=== PATIENT | female | born 2000 | race Caucasian/White ===

== ENCOUNTER → 2021-07-11 04:53 | Observation (INO) | END | disposition home or self-care (01) | LOC: 1NENULAB | PROVIDERS: ADMIT Obstetrics & Gynecology; ATTEND Obstetrics & Gynecology ==

== ENCOUNTER 2021-07-11 10:11 | Inpatient (IN) ==
[2021-07-11] MEDS ORDERED: Azithromycin 500 MG in 0.9 % Sodium Chloride 250 ML IVPB PRN (11:12)
[2021-07-11] MEDS ORDERED: Ondansetron 4 MG/2 ML VIAL IVP PRN (11:12)
[2021-07-11] MEDS ORDERED: Naloxone 0.4 MG/ML INJ IVP PRN (11:12)
[2021-07-11] MEDS ORDERED: Famotidine 20 MG/2 ML VIAL IVP PRN (11:12)
[2021-07-11] MEDS ORDERED: Metoclopramide 10 MG/2 ML VIAL IVP PRN (11:12)
[2021-07-11] MEDS ORDERED: Ringers Solution, Lactated 1,000 ML IVC SCH (11:15)
[2021-07-11] MEDS ORDERED: Penicillin G Potassium 5,000,000 UNIT in 0.9 % Sodium Chloride Mini Bag 100 ML IVPB ONE (11:58)
[2021-07-11 12:03] LABS: Basophils % 0.1 %; Eosinophils # 0.1 K/mcL (0.0-0.6); Eosinophils % 0.7 %; Hematocrit 37.1 % (35.3-44.9); Hemoglobin 12.5 g/dL (11.5-15.4); Immature Granulocytes % 0.4 % (0-4); Lymphocytes # 2.5 K/mcL (0.6-4.6); Lymphocytes % 17.2 %; Mean Corpuscular HGB Conc 33.7 g/dL (31.6-35.5); Mean Corpuscular Hemoglobin 28.8 pg (28.0-33.3); Mean Corpuscular Volume 85.5 fL (83.0-100.0); Mean Platelet Volume 11.8 fL (9.4-12.4); Monocytes % 6.9 %; Neutrophils # 10.8 K/mcL (1.6-8.9); Platelet Count 226 K/mcL (140-400); Red Blood Count 4.34 M/mcL (3.82-4.97); Red Cell Distribution Width 13.3 % (11.5-14.5); Segmented Neutrophils % 74.7 %; White Blood Count 14.4 K/mcL (4.3-11.1)
[2021-07-11 12:13] LABS: Amphetamine Screen,Urine Negative ng/mL (Cutoff=1000); Barbiturate Screen,Urine Negative ng/mL (Cutoff=200); Benzodiazepines Screen,Urine Negative ng/mL (Cutoff=200); Cannabinoid Screen,Urine Negative ng/mL (Cutoff = 50); Cocaine Screen,Urine Negative ng/mL (Cutoff= 300); Opiate Screen,Urine Negative ng/mL (Cutoff=300); Phencyclidine Screen,Urine Negative ng/mL (Cutoff=25)
[2021-07-11 12:48] LABS: Influenza A PCR Negative (Negative); Influenza B PCR Negative (Negative); Resp. Syncytial Virus PCR Negative (Negative); SARS-CoV-2 by PCR (In House) Negative (Negative)
[2021-07-11] MEDS: Oxytocin 30 UNIT/503 ML BAG IVC SCH ×2 (13:23→17:54)
[2021-07-11] MEDS ORDERED: *HR* Nalbuphine 10 MG/ML AMPUL IV PRN (13:55)
[2021-07-11] MEDS ORDERED: EPHEDrine 50 MG/ML VIAL IVP PRN (14:01)
[2021-07-11] MEDS ORDERED: Epidural Premix (fent/bupiv) 110 ML EP SCH (14:15)
[2021-07-11] MEDS ORDERED: Penicillin G Potassium 2,500,000 UNIT/105 ML MLS IVPB SCH (16:00)
[2021-07-11] MEDS ORDERED: Measles/Mumps/Rubella Vacc 0.5 ML VIAL SQ PRN (20:43)
[2021-07-11] MEDS ORDERED: Benzocaine/Menthol 56 GM AEROSOL SPRAY TP PRN (20:43)
[2021-07-11] MEDS ORDERED: Lanolin 7 G OINT...G. TP PRN (20:43)
[2021-07-11] MEDS ORDERED: Oxytocin 30 UNIT/503 ML BAG IVC SCH (20:43)
[2021-07-11] MEDS ORDERED: Ondansetron ODT 4 MG TAB.RAPDIS SL PRN (20:43)
[2021-07-11] MEDS: Acetaminophen 325 MG TABLET PO SCH (22:36)
[2021-07-11] MEDS: Ibuprofen 600 MG TABLET PO SCH (22:36)
[2021-07-11] MEDS: Famotidine 20 MG TABLET PO SCH (22:36)
[2021-07-12 03:30] VITALS: O2SAT 98
[2021-07-12 03:34] LABS: Basophils % 0.1 %; Eosinophils # 0.1 K/mcL (0.0-0.6); Eosinophils % 0.5 %; Immature Granulocytes % 0.4 % (0-4); Lymphocytes % 17.8 %; Mean Corpuscular HGB Conc 33.3 g/dL (31.6-35.5); Mean Corpuscular Hemoglobin 28.6 pg (28.0-33.3); Mean Corpuscular Volume 85.7 fL (83.0-100.0); Mean Platelet Volume 11.4 fL (9.4-12.4); Monocytes # 1.3 K/mcL (0.0-1.3); Neutrophils # 12.2 K/mcL (1.6-8.9); Platelet Count 195 K/mcL (140-400); Red Blood Count 3.85 M/mcL (3.82-4.97); Red Cell Distribution Width 13.3 % (11.5-14.5); Segmented Neutrophils % 73.2 %; White Blood Count 16.7 K/mcL (4.3-11.1)
[2021-07-12 07:10] VITALS: BP 109/63; PULSE 81; TEMP 98.2
[2021-07-12] MEDS: Famotidine 20 MG TABLET PO SCH (08:15)
[2021-07-12] MEDS: Acetaminophen 325 MG TABLET PO SCH ×3 (08:15→15:54)
[2021-07-12] MEDS: Ibuprofen 600 MG TABLET PO SCH ×3 (08:16→15:56)
[2021-07-12] MEDS ORDERED: NON-FORMULARY MEDICATION 1 EACH EACH (Prenatal 19 Tablet 1 TAB) PO SCH (09:00)
[2021-07-12] MEDS ORDERED: Prenatal Vit/FA 1 EACH TABLET PO SCH (09:00)
== END 2021-07-12 19:10 | disposition home or self-care (01) | DRG 807 ==
LOC: 1NENULAB 10:11 → UNDODISIN 18:00 → 1NENUOBS 20:39
PROVIDERS: ADMIT Obstetrics & Gynecology; ATTEND Obstetrics & Gynecology